=== PATIENT | male | born 1940 | race Caucasian/White ===

== ENCOUNTER 2016-09-17 19:10 | Observation (INO) | payer MEDICARE ==
[2016-09-17] MEDS ORDERED: Sodium Chloride 0.9% 10 ML Syringe FLUSH PRN ×2 (20:14→22:04)
[2016-09-17] MEDS ORDERED: Lactated Ringers 1,000 ML IV SCH (20:15)
--- NOTE | 2016-09-17 20:23 | EDM.PDOC ---
ED HPI GENERAL MEDICAL PROBLEM - General Chief Complaint: General Stated Complaint: CONFUSED WEAK Time Seen by Provider: 09/17/16 20:19 Source of Information: Reports: Patient (She told me to it shift change;), Family, RN Notes Reviewed (Sinuses 3) History Limitations: Reports: Altered Mental Status - History of Present Illness INITIAL COMMENTS - FREE TEXT/NARRATIVE: 76-year-old gentleman presents emergency department today with his family for complaints of weakness and confusion. He does have a known history of prostate cancer with metastatic bone pain also recent discovery of a brain mass right temporal region unclear etiology metastatic versus primary per radiology note review of urgent neurosurgery note questions that differential including meningioma. He denies any symptoms other than weight loss because of loss of appetite. Family states he's been more confused as of late he does live home alone family feels that over the last 2 weeks he has progressively declined. He was scheduled for surgical resection this week however surgeries canceled because he did not stop taking his aspirin Headache Pain Score (Numeric/FACES): 3 - Related Data Allergies Allergy/AdvReac Type Severity Reaction Status Date / Time No Known Allergies Allergy Verified 09/17/16 19:36 Home Meds: Home Meds Aspirin 325 mg PO DAILY 06/07/13 [History] Barley Grass 06/07/13 [History] Beta Glucan 06/07/13 [History] Cholecalciferol 1,000 units PO DAILY 06/07/13 [History] Desonide 06/07/13 [History] Green Tea 1 cap PO DAILY 06/07/13 [History] *Fshzvazs6go 4 mg PO ASDIRECTED 09/17/16 [History] *Medical Cannabis 09/17/16 [History] *Super Green Powder 10.6 gm PO DAILY 09/17/16 [History] Famotidine 20 mg PO DAILY 09/17/16 [History] levETIRAcetam [Keppra] 500 mg PO BID 09/17/16 [History] Past Medical History HEENT History: Reports: Cataract Cardiovascular History: Reports: Afib Respiratory History: Reports: Sleep Apnea Other Respiratory History: c-pap Genitourinary History: Reports: Prostate Disorder Hematologic History: Reports: B12 Deficiency Immunologic History: Reports: Other (See Below) Other Immunologic History: polymyalgis rhumatica Oncologic (Cancer) History: Reports: Basal Cell Carcinoma, Brain, Prostate, Squamous Cell Carcinoma, Other (See Below) Other Oncologic History: bone metastases Dermatologic History: Reports: Other (See Below) Other Dermatologic History: multiple actinic keratoses - Past Surgical History HEENT Surgical History: Reports: Cataract Surgery GI Surgical History: Reports: Hernia Repair/Other Male Surgical History: Reports: Prostate Biopsy Neurological Surgical History: Reports: Laminectomy Musculoskeletal Surgical History: Reports: Knee Replacement Other Musculoskeletal Surgeries/Procedures:: right Social & Family History - Tobacco Use Smoking Status *Q: Former Smoker Used Tobacco, but Quit: Yes Month Tobacco Last Used: 04/11/1982 - Caffeine Use Caffeine Use: Reports: Coffee - Recreational Drug Use Recreational Drug Use: No ED ROS GENERAL - Review of Systems Review Of Systems: See Below Constitutional: Reports: Weight Loss. Denies: Fever, Chills HEENT: Reports: No Symptoms Respiratory: Reports: No Symptoms Cardiovascular: Reports: No Symptoms GI/Abdominal: Reports: No Symptoms : Reports: No Symptoms Musculoskeletal: Reports: No Symptoms Skin: Reports: No Symptoms Neurological: Reports: Confusion, Weakness ED EXAM, GENERAL - Physical Exam Exam: See Below Free Text/Narrative:: General: Elderly male, not in any distress however he is confused and mildly agitated is orientated to name only HEENT: head is atraumatic normocephalic, eyes pupils equal round reactive to light, sclera clear no conjunctivitis appreciated. Ears tympanic membranes clear and hinds landmarks and light reflex are present bilaterally canals are clear. Nose no septal deviation, nares are clear, no blood present. Mouth mucosa is moist and pink no erythema or exudate noted in soft palate, tongue is midline uvula is midline, dentition is intact. Neck: Supple no thyromegaly no tracheal deviation. Nodes: Cervical nodes subclavicular nodes nontender no palpable lymphadenopathy noted. Lungs: clear to auscultation bilaterally with symmetrical respirations, no adventitious noise appreciated. CV: Irregularly irregular rate and rhythm S1 and S2 appreciated no murmurs rubs or gallops noted. Abdomen: Soft, nontender, no palpable masses or organomegaly appreciated, no distention no guarding bowel sounds are present, . Neuro: Cranial nerves II through XII grossly intact, no focal neurologic deficit Skin: Warm and dry, intact Extremities: No lower extremity edema appreciated, Exam Limited By: No Limitations Course - Vital Signs Last Recorded V/S: Last Vital Signs Temp 99.7 F 06/09/17 19:30 Pulse 50 L 09/17/16 20:58 Resp 16 09/17/16 20:58 BP 139/66 09/17/16 20:58 Pulse Ox 99 09/17/16 20:58 - Orders/Labs/Meds Orders: Active Orders 24 hr Category Date Time Status Peripheral IV Care [RC] . DIRECTED Care 09/17/16 20:15 Active Lactated Ringers [Ringers, Lactated] 1,000 ml Med 09/17/16 20:15 Active IV ASDIRECTED Sodium Chloride 0.9% [Saline Flush] Med 09/17/16 20:14 Active 10 ml FLUSH ASDIRECTED PRN Peripheral IV Insertion Adult [OM.PC] Stat Oth 09/17/16 20:14 Ordered Medication Orders Lactated Ringer's (Ringers, Lactated) 1,000 mls @ 500 mls/hr IV ASDIRECTED CARLOS Last Admin: 09/17/16 20:34 Dose: 500 mls/hr Sodium Chloride (Saline Flush) 10 ml FLUSH ASDIRECTED PRN PRN Reason: Keep Vein Open Last Admin: 09/17/16 20:35 Dose: 10 ml Labs: Laboratory Tests 09/17/16 09/17/16 09/17/16 Range/Units 20:24 20:36 20:36 WBC 3.5 L (4.5-11.0) K/uL RBC 2.76 L (4.30-5.90) M/uL Hgb 8.7 L D (12.0-15.0) g/dL Hct 26.3 L (40.0-54.0) % MCV 95 (80-98) fL MCH 32 H (27-31) pg MCHC 33 (32-36) % Plt Count 116 L (150-400) K/uL Neut % (Auto) 60 (36-66) % Lymph % (Auto) 28 (24-44) % [place] % (Auto) 11 H (2-6) % Eos % (Auto) 1 L (2-4) % Baso % (Auto) 1 (0-1) % Sodium 139 L (140-148) mmol/L Potassium 3.9 (3.6-5.2) mmol/L Chloride 107 (100-108) mmol/L Carbon Dioxide 26 (21-32) mmol/L Anion Gap 9.9 (5.0-14.0) mmol/L BUN 17 (7-18) mg/dL Creatinine 1.0 (0.8-1.3) mg/dL Est Cr Clr Drug Dosing 65.90 mL/min Estimated GFR (MDRD) > 60 (>60) Glucose 94 (74-106) mg/dL Lactic Acid (0.4-2.0) mmol/L Calcium 8.3 L (8.5-10.1) mg/dL Phosphorus 3.2 (2.5-4.9) mg/dL Magnesium 1.9 (1.8-2.4) mg/dL Total Bilirubin 1.1 H (0.2-1.0) mg/dL AST 117 H (15-37) U/L ALT 18 (12-78) U/L Alkaline Phosphatase 193 H (46-116) U/L Ammonia (11-32) mmol/L Total Protein 6.0 L (6.4-8.2) g/dL Albumin 2.7 L (3.4-5.0) g/dL Globulin 3.3 (2.3-3.5) g/dL Albumin/Globulin Ratio 0.8 L (1.2-2.2) Urine Color Yellow Urine Appearance Clear Urine pH 5.0 (4.5-8.0) Ur Specific [place] 1.015 (1.008-1.030) Urine Protein Negative (NEGATIVE) mg/dL Urine Glucose (UA) Normal (NEGATIVE) mg/dL Urine Ketones Negative (NEGATIVE) mg/dL Urine Occult Blood Negative (NEGATIVE) Urine Nitrite Negative (NEGAITVE) Urine Bilirubin Negative (NEGATIVE) Urine Urobilinogen Normal (NORMAL) mg/dL Ur Leukocyte Esterase Negative (NEGATIVE) Urine RBC Not seen (0-5) Urine WBC Not seen (0-5) Ur Epithelial Cells Rare Amorphous Sediment Not seen Urine Bacteria Few Urine Mucus Rare 09/17/16 09/17/16 Range/Units 20:36 20:36 WBC (4.5-11.0) K/uL RBC (4.30-5.90) M/uL Hgb (12.0-15.0) g/dL Hct (40.0-54.0) % MCV (80-98) fL MCH (27-31) pg MCHC (32-36) % Plt Count (150-400) K/uL Neut % (Auto) (36-66) % Lymph % (Auto) (24-44) % Harals[place] % (Auto) (2-6) % Eos % (Auto) (2-4) % Baso % (Auto) (0-1) % Sodium (140-148) mmol/L Potassium (3.6-5.2) mmol/L Chloride (100-108) mmol/L Carbon Dioxide (21-32) mmol/L Anion Gap (5.0-14.0) mmol/L BUN (7-18) mg/dL Creatinine (0.8-1.3) mg/dL Est Cr Clr Drug Dosing mL/min Estimated GFR (MDRD) (>60) Glucose (74-106) mg/dL Lactic Acid 0.9 (0.4-2.0) mmol/L Calcium (8.5-10.1) mg/dL Phosphorus (2.5-4.9) mg/dL Magnesium (1.8-2.4) mg/dL Total Bilirubin (0.2-1.0) mg/dL AST (15-37) U/L ALT (12-78) U/L Alkaline Phosphatase (46-116) U/L Ammonia 7 L (11-32) mmol/L Total Protein (6.4-8.2) g/dL Albumin (3.4-5.0) g/dL Globulin (2.3-3.5) g/dL Albumin/Globulin Ratio (1.2-2.2) Urine Color Urine Appearance Urine pH (4.5-8.0) Ur Specific [place] (1.008-1.030) Urine Protein (NEGATIVE) mg/dL Urine Glucose (UA) (NEGATIVE) mg/dL Urine Ketones (NEGATIVE) mg/dL Urine Occult Blood (NEGATIVE) Urine Nitrite (NEGAITVE) Urine Bilirubin (NEGATIVE) Urine Urobilinogen (NORMAL) mg/dL Ur Leukocyte Esterase (NEGATIVE) Urine RBC (0-5) Urine WBC (0-5) Ur Epithelial Cells Amorphous Sediment Urine Bacteria Urine Mucus Meds: Medications Generic Name Dose Route Start Last Admin Trade Name Freq PRN Reason Stop Dose Admin Lactated Ringer's 1,000 mls @ 500 mls/hr 09/17/16 20:15 09/17/16 20:34 Ringers, Lactated IV 500 mls/hr ASDIRECTED CARLOS Administration Sodium Chloride 10 ml 09/17/16 20:14 09/17/16 20:35 Saline Flush FLUSH 10 ml ASDIRECTED PRN Administration Keep Vein Open Discontinued Medications Generic Name Dose Route Start Last Admin Trade Name Philly PRN Reason Stop Dose Admin Dexamethasone 10 mg 09/17/16 21:43 Dexamethasone IVPUSH 09/17/16 21:44 ONETIME ONE Departure - Departure Time of Disposition: 22:01 Disposition: Admitted As Inpatient 67 Condition: poor Clinical Impression: Confusion - Discharge Information Forms: ED Department Discharge - My Orders Last 24 Hours: My Active Orders 09/17/16 20:14 Sodium Chloride 0.9% [Saline Flush] 10 ml FLUSH ASDIRECTED PRN Peripheral IV Insertion Adult [OM.PC] Stat 09/17/16 20:15 Peripheral IV Care [RC] . DIRECTED Lactated Ringers [Ringers, Lactated] 1,000 ml IV ASDIRECTED - Assessment/Plan Last 24 Hours: My Active Orders 09/17/16 20:14 Sodium Chloride 0.9% [Saline Flush] 10 ml FLUSH ASDIRECTED PRN Peripheral IV Insertion Adult [OM.PC] Stat 09/17/16 20:15 Peripheral IV Care [RC] . DIRECTED Lactated Ringers [Ringers, Lactated] 1,000 ml IV ASDIRECTED Plan: Assessment Acuity = acute Site and laterality = confusion, cane with patient with history of right temporal brain mass of unclear etiology and history of prostate cancer with metastases Etiology = suspicious for brain mass involvement Manifestations = confused Location of injury = home Lab values = WBC low at 3.5 consistent leukopenia hemoglobin low at 8.7 consistent normochromic anemia sodium low at 139 consistent hyponatremia AST elevated at 117 consult elevated liver enzymes albumin low at 2.7 consistent with hypoalbuminemia Plan I'll discuss the case with neurosurgery broadcast operations manager at [facility] recommended 10 mg IV Decadron now increasing his dose of Decadron to 6 mg every 6 hours, he is planned for surgical resection of the right temporal mass September 21, called and discussed the case with Dr. Fowler admitting physician broadcast operations manager he agreed to , and evaluate patient hospital for admission and further evaluation of his confusion This note was dictated using [employer] voice recognition software please call with any questions.
[2016-09-17] MEDS ORDERED: Dexamethasone 4 MG/ML SDV IVPUSH ONE (21:43)
[2016-09-18] MEDS: Dexamethasone 4 MG/ML SDV PO SCH ×2 (00:14→05:53)
--- NOTE | 2016-09-18 00:54 | HP ---
IDENTIFYING DATA: Mr. Wm Richardson is a 76-year-old single male from [facility]. CHIEF COMPLAINT: Weakness and confusion reported by family. HISTORY OF PRESENT ILLNESS: This elderly gentleman has noted history of primary prostatic malignancy with bony pelvic metastases followed by Oncology Services at [facility]. Approximately 2 months ago, he presented with complaints of left temporal headache, pain. CT imaging revealed a right frontal lobe mass confirmed on an MRI. Radiology review has suggested the possibility of a primary brain malignancy versus benign meningioma. He was tentatively scheduled for surgical resection by Dr. Gaytan of Neurosurgery Department at [facility] in [place] on 09/14/2016; however, on arrival it was noted that he had resumed taking aspirin and had had a morning meal. Surgical date was then rescheduled for 09/21/2016 with family instructed on need to discontinue aspirin and present in a fasting state the morning of admission. The family, primarily his brother and [id number], have noted an interaction by phone conversation and physical presentation today have noted increasing periods of confusion and disorientation and general weakness. Feeling he was unsafe and unable to care for self, they presented to the hospital for evaluation this evening. Wm notes ongoing left-sided headache, pain. He does admit to general weakness and mild anorexia. He has had no fevers or chills. No visual distortion noted. No nausea or emesis. He admits to general unsteadiness, although has had no falls. He reportedly has been helping a friend clean an old property for the last month, but family states with his developing weakness, he had little physical endurance or stamina and had been working sporadically. He continues to self administer medications. Family is unsure whether he has been accurately self administering his prescribed agents. ALLERGIES: NO NOTED DRUG ALLERGIES. MEDICATIONS: Aspirin 325 mg daily, now held since 09/14/2016. Reported use of medical cannabis, the patient is nonspecific as to the source of his medical product. He as earlier stated he is not enrolled in the State Medical Marijuana Program. Famotidine 20 mg b.i.d., Keppra 500 mg b.i.d., dexamethasone 4 mg t.i.d., vitamin D3 at 1000 units daily, and super Green Powder 10.6 g by mouth once daily. IMMUNIZATIONS: He refuses influenza and pneumococcal vaccine. HABITS: Remote history of tobacco use, now abstaining. Caffeine intake averages 1 cup of coffee daily. Denies use of soft drinks. Alcohol use has been moderate to heavy. Currently, he reports ingestion of 2 drinks per day. SOCIAL HISTORY: Retired. approximately 1 to 2 years ago. He resides independently. Brother and [id number] are providing assistance as needed. They reside approximately [address] away[address] to [address]. He has had no accidents by his report. FAMILY HISTORY: Denies familial history of chronic neurologic disease including dementia, aneurysm, and previous CVA. No family history of bleeding disorder or coagulopathy. REVIEW OF SYSTEMS: NEUROLOGIC: Does admit to general weakness and mild confusion. Denies visual disturbances. He estimates 6 hours of sleep nightly noting frequent nighttime awakening. No falls, vertigo, or paresthesias. CARDIAC: No history of hypertension, diabetes, rheumatic fever, NH, congestive heart failure, angina, or syncope. He does have a history of atrial fibrillation. Recently evaluated by Cardiology Services. He has refused anticoagulant therapy. RESPIRATORY: No history of asthma, emphysema, cough, sputum production, tuberculosis or shortness of breath. GI: Dyspeptic symptoms respond to H2 blockers. No history of hepatitis, jaundice, gallbladder disease, diarrhea, or melena. : Urge incontinence with occasional urinary leakage. Noted prostatic malignancy with bony metastases in the pelvis. No dysuria, hematuria, or flank pain. MUSCULOSKELETAL: Low back stiffness. Previous lumbar laminectomy. Additionally, he has had previous total knee arthroplasty with stiffness of the knees. PHYSICAL EXAMINATION: VITAL SIGNS: Temperature 99.7 degrees Fahrenheit, respiratory rate 16, pulse rate 50, blood pressure 139/66, and O2 sats 99% on room air. HEENT: Hearing is grossly intact with normal canals. Pupils are equal and reactive to light. Sclerae are anicteric. Extraocular eye movements are intact without nystagmus. No diplopia. No oropharyngeal lesions. Speech is clear. NECK: Brisk irregular carotid pulses. No bruits or JVD. No nuchal rigidity. LUNGS: Clear and non-tachypneic. Symmetrical aeration. HEART: Irregular rhythm today without murmurs or gallops noted. ABDOMEN: Soft, nontender, and nondistended. No organomegaly or other unusual masses. Good femoral pulses. No CVA pain. : Omitted. RECTAL: Omitted. EXTREMITIES: Good radial and posterior tibial pulses. Mild edema at the distal legs. SKIN: Warm, pink, and dry with brisk capillary refill. No open or ulcerative lesions. NEUROLOGIC: Now showing intact orientation to person, place, and time. Long-term memory is appropriate. Speech is clear. No distractibility or confusion is evident. Symmetrical strength in the upper and lower extremities. Biceps and patellar DTRs are symmetrical on testing. LABORATORY DATA: On admission, WBC 3.5, hemoglobin 8.7, hematocrit 26.3, and platelet count 116,000. Sodium 139, potassium 3.9, BUN 17, creatinine 1, glucose 94, and calcium 8.3. Alkaline phosphatase mildly elevated at 193 with an AST of 117. Urinalysis; specific gravity of 1.015 with negative dipstick. IMPRESSION: 1. Confusion and generalized weakness, likely secondary to intracranial lesion. 2. Noted history of a right temporal lobe lesion of unknown type, consider primary brain malignancy versus meningioma. 3. Metastatic prostate cancer with bony pelvic metastases. 4. Reported history of obstructive sleep apnea. The patient refuses continuous positive airway pressure therapy. 5. Atrial fibrillation with controlled rate. 6. History of [id number] alcohol use, now low restricting intake to 2 drinks daily. PLAN: The patient with reported confusion is unable to return home and manage in a safe manner. Therefore, we will admit to observation status. Continue with cardiorespiratory monitoring standby assistance with ADL performance and oral medications with aspirin having been held. We will anticipate followup on 09/21/2016 with Neurosurgery Services at [facility] for planned craniotomy and excision of right temporal lobe lesion. The patient reports that of full code status is desired to be maintained in the postoperative period. He will likely require a short fpc stay as he recuperates from his surgical procedure and will request that discharge planning investigate potential options. Neurosurgery has requested an increase in his maintenance steroid therapy prior to surgical date. Decadron 10 mg IV was provided in the emergency room with maintenance dose of 6 mg p.o. q.i.d. initiated. Oziel Fowler MD /[id number]
[2016-09-18] MEDS: Dexamethasone 4 MG Tab PO SCH ×4 (04:54→21:57)
--- NOTE | 2016-09-18 07:16 | PN ---
DATE OF SERVICE: 09/18/2016 SUBJECTIVE: Adult male has noted history of metastatic prostatic cancer with bony involvement in the pelvis. He has been identified as having a right temporal lobe lesion of suspected TEST FIXTURE DESIGNER primary with surgical resection anticipated by Neurosurgery Services at [facility] on 09/21/2016. He presented to the emergency room yesterday evening with family reporting general instability, weakness, anorexia, and confusion. He is maintained on steroid suppressive swelling for perilesional edema of his TEST FIXTURE DESIGNER mass and was hospitalized for ongoing supportive care. Through the nighttime, he noted a mild background left temporal headache. He has had evidence of mental slowing and gait instability reported by nursing staff. He has had no falls. He has had incontinence of urine. OBJECTIVE: VITAL SIGNS: Temperature 35.6, pulse 58, blood pressure 107/74, respiratory rate 16 GENERAL: Resting comfortably, in no acute respiratory distress. LUNGS: Clear. HEART: Regular without murmurs. NEUROLOGICAL: Symmetrical strength noted. IMPRESSION AND PLANS: A TEST FIXTURE DESIGNER lesion at the right temporal lobe. Surgical resection is tentatively scheduled for 09/21/2016. We will ask that discharge planning confirm his surgical time today. Family anticipates providing transportation for his scheduled procedure in [place]. We will continue to provide supportive cares. The patient is unable to safely manage at home without supervision. Maintenance medication including oral Decadron is provided. Standard diet and full code status is maintained. Oziel Fowler MD /[id number]
[2016-09-18] MEDS ORDERED: Famotidine 20 MG Tab PO SCH (09:00)
[2016-09-18] MEDS ORDERED: levETIRAcetam 250 MG Tab PO SCH (09:00)
[2016-09-18] MEDS ORDERED: Dexamethasone 4 MG Tab PO ONE (12:00)
[2016-09-18] MEDS: LEVETIRACETAM 500 MG PO SCH ×2 (13:49→21:56)
[2016-09-18] MEDS: FAMOTIDINE 20 MG PO SCH ×2 (13:49→21:55)
[2016-09-18] MEDS: Acetaminophen 325 MG Tab PO PRN (19:19)
[2016-09-19] MEDS: Dexamethasone 4 MG Tab PO SCH ×4 (05:19→21:42)
[2016-09-19] MEDS: FAMOTIDINE 20 MG PO SCH ×2 (08:55→21:43)
[2016-09-19] MEDS: LEVETIRACETAM 500 MG PO SCH ×2 (08:56→21:42)
--- NOTE | 2016-09-19 09:30 | PN ---
DATE OF SERVICE: 09/19/2016 SUBJECTIVE: Adult male has noted history of right temporal lobe mass with tentatively planned craniotomy and surgical resection on 09/21/2016. Family delivered him to the emergency room earlier this weekend with noted weakness and increasing confusion, likely secondary to his tumor mass. Since hospitalization, he has been comfortable. He has a mild persistent background headache managed with p.r.n. use of Tylenol. Staff does report general unsteadiness on his feet though he has had no falls and requires moderate stand-by assistance. Appetite is fair. No nausea or vomiting. Word finding is uncomplicated. OBJECTIVE: VITAL SIGNS: Blood pressure 96.7, pulse 60, temperature 36.7, respiratory rate 16, no facial asymmetry. Speech is clear. LUNGS: Clear. HEART: Regular without murmurs or gallops. EXTREMITIES: Reveals symmetrical strength without focal deficits. NEUROLOGIC: He has minor impairment with his immediate recall. Short and long-term memory seems to be intact today. IMPRESSION AND PLAN: History of right temporal lobe mass, malignant versus benign is not determined at the present time. We will continue with observation status, vitals and standby assistance with performance of ADLs. Anticipate discharge tomorrow evening at which time, his family will arrive to transport him to [place]. They anticipate an overnight stay in a local hotel with a presentation for surgical procedure at [facility] in [place] at 0530 hours on 09/21/2016. The patient does have Tylenol available to be used on a p.r.n. basis for minor headache. His noted metastatic prostatic malignancy is currently asymptomatic with the exception of diminished urinary stream and nocturia. Oziel Fowler MD /[id number]
[2016-09-19] MEDS: hydrOXYzine HCl 25 MG Tab PO PRN ×2 (11:59→21:49)
[2016-09-19] MEDS: Acetaminophen 325 MG Tab PO PRN (21:49)
[2016-09-20] MEDS: Dexamethasone 4 MG Tab PO SCH ×3 (04:19→16:01)
[2016-09-20] MEDS: LEVETIRACETAM 500 MG PO SCH (08:27)
[2016-09-20] MEDS: FAMOTIDINE 20 MG PO SCH (08:27)
[2016-09-20] MEDS ORDERED: Metoprolol Succinate 50 MG Tab.ER PO SCH (09:00)
[2016-09-20] MEDS ORDERED: Aspirin 81 MG Tab.Chew PO SCH (09:00)
[2016-09-20] MEDS ORDERED: Hydrochlorothiazide 25 MG Tab PO SCH (09:00)
[2016-09-20 14:38] VITALS: BP 120/62
[2016-09-20] MEDS: hydrOXYzine HCl 25 MG Tab PO PRN (17:43)
[2016-09-20] MEDS ORDERED: atorvaSTATin 20 MG Tab PO SCH (21:00)
--- NOTE | 2016-09-21 10:12 | DISCH ---
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 He had tentatively been scheduled for a craniotomy and surgical resection of his intracranial lesion on 09/14/2016, though he presented to the hospital the morning of the admission having eaten breakfast and using his chronic aspirin therapy. Surgical date was rescheduled for 09/21/2016. He is on oral steroid suppressive therapy, though family questions whether he has been using his medications as directed. His oral intake has been poor by family's report. He has a persistent mild background left headache reported. No visual distortion. He has had falls without injury. PHYSICAL EXAMINATION ON ADMISSION: VITAL SIGNS: Temperature 99.7, respiratory rate 16, pulse rate 50, blood pressure 139/66. HEENT: Hearing is normal. Pupils are equal and reactive. Extraocular eye movements intact without nystagmus. No facial asymmetry. Speech is clear. No diplopia. No oropharyngeal lesions. NECK: Brisk irregular carotid pulses. No JVD or bruits. LUNGS: Clear and nontachypneic. HEART: Irregular secondary to noted atrial fibrillation. No murmurs or gallops. ABDOMEN: Soft, nontender, and nondistended. No organomegaly. EXTREMITIES: Good pulses. No edema. No ischemic skin changes. No injury noted. NEUROLOGIC: Intact orientation to person, place, and time. Long-term memory was appropriate. Speech was clear. No distractibility or confusion was evident. He had symmetrical strength in the upper and lower extremities. Mild instability with ambulation. Biceps and patellar DTRs were symmetrical. LABORATORY DATA: On admission, WBC 3.5, hemoglobin 8.7, hematocrit 26.3, platelet count 116,000. Sodium 139, potassium 3.9, BUN 17, creatinine 1, glucose 94, calcium 8.3, alkaline phosphatase 193, AST 117. Urinalysis: Specific gravity of 1.015 with a negative dipstick. HOSPITAL COURSE: Mr. Richardson was admitted with noted instability and general weakness as well as a reported confusion thought to be secondary to his intracranial temporal lobe lesion as well as poor oral intake. He was placed in observation status being unable to return home to an independent setting with anticipated surgery scheduled at [facility] on 09/21/2016. During hospital stay, he exhibited good appetite without nausea or emesis. Bowel function and voiding patterns were normal. He was resting comfortably. He had mild instability on feet requiring only simple standby assistance. He did have some evidence of mild mental slowing and impairment of immediate recall, though long-term memory and orientation seemed to be intact. Family members were present during the patient's hospital stay, voiced their intent to provide support for him with his upcoming surgery. Anticipating discharge on Tuesday with travel to [place] for early a.m. procedure at [facility]. Plans for discharge to home were made. DISCHARGE INSTRUCTIONS: 1. Will discharge on 09/20/2016, to care of family with anticipated travel to [place]. Overnight stay at a local hot, and subsequent followup at [facility] on 09/21/2016, for a tentatively planned craniotomy and resection of intracranial lesion. 2. Diet as tolerated, n.p.o. after midnight. 3. Continue with home medications. Decadron was increased to 6 mg p.o. q.i.d. The patient was instructed to avoid aspirin and nonsteroidal agents preoperatively. 4. Anticipate probable need for a short senior care stay as a recuperative period following his discharge from acute care setting in [place]. ADMITTING DIAGNOSES: 1. Confusion and generalized weakness. 2. History of right temporal lobe lesion, unknown type. Consider primary brain malignancy versus meningioma. 3. Known prostate cancer with metastatic bony pelvic metastases. 4. Obstructive sleep apnea. The patient refuses CPAP therapy. 5. Atrial fibrillation with controlled rate, not currently on antiplatelet or anticoagulant therapy. 6. History of moderate to heavy alcohol use, now restricting intake. DISCHARGE DIAGNOSES: 1. Confusion and generalized weakness. 2. History of right temporal lobe lesion, unknown type. Consider primary brain malignancy versus meningioma. 3. Known prostate cancer with metastatic bony pelvic metastases. 4. Obstructive sleep apnea. The patient refuses CPAP therapy. 5. Atrial fibrillation with controlled rate, not currently on antiplatelet or anticoagulant therapy. 6. History of moderate to heavy alcohol use, now restricting intake.
== END 2016-09-20 19:11 | disposition home or self-care (01) ==
LOC: JP.ED 19:10 → JP.MS 22:04
PROVIDERS: ADMIT Family Medicine; ATTEND Family Medicine
DX: R41.0 Disorientation, unspecified (principal); R53.1 Weakness; G47.33 Obstructive sleep apnea (adult) (pediatric); I48.91 Unspecified atrial fibrillation; C61 Malignant neoplasm of prostate; C79.51 Secondary malignant neoplasm of bone; Z79.82 Long term (current) use of aspirin; Z79.899 Other long term (current) drug therapy
CPT/HCPCS: 36415; 80053; 81001; 82140; 83605; 83735; 84100; 85025; 96361; 96374; 97161; 99285; A9270; G0378; J1100; J7050; J7120; J8540; 99284